=== PATIENT | male | born 1965 | race Caucasian/White ===

== ENCOUNTER 2017-02-07 16:34 | Emergency (ER) | payer OTHER ==
[2017-02-07] MEDS ORDERED: PROPARACAINE 0.5% 15 ML OPHT DROP OP ONE (16:37)
[2017-02-07 16:43] VITALS: BP 136/98; PULSE 58; RESP 18; TEMP 98.2; O2SAT 95
--- NOTE | 2017-02-07 16:51 | EDPHY ---
H & P Stated Complaint: rt eye pain Time Seen by Provider: 02/07/17 16:43 HPI/ROS: CHIEF COMPLAINT: Corneal abrasion HISTORY OF PRESENT ILLNESS: The patient is a 51-year-old man who comes to the emergency department complaining of a foreign body sensation in his right eye. He woke up this morning and felt like his eyelid was scratching his eye. He has not had any discharge. No vision changes. No erythema. He is not wear contacts. REVIEW OF SYSTEMS: Constitutional: denies: chills, fever, recent illness, recent injury EENTM: See HPI Respiratory: denies: cough, shortness of breath Cardiac: denies: chest pain, irregular heart rate, lightheadedness, palpitations Gastrointestinal/Abdominal: denies: abdominal pain, diarrhea, nausea, vomiting, blood streaked stools Genitourinary: denies: dysuria, frequency, hematuria, pain Musculoskeletal: denies: joint pain, muscle pain Skin: denies: lesions, rash, jaundice, bruising Neurological: denies: headache, numbness, paresthesia, tingling, dizziness, weakness Hematologic/Lymphatic: denies: blood clots, easy bleeding, easy bruising Immunologic/allergic: denies: HIV/AIDS, transplant EXAM: GENERAL: Well-appearing, well-nourished and in no acute distress. HEAD: Atraumatic, normocephalic. EYES: Pupils equal round and reactive to light, extraocular movements intact, sclera anicteric, conjunctiva are normal. ENT: Very minimal corneal abrasion to right eye, no foreign bodies visible. NECK: Normal range of motion, supple without lymphadenopathy or JVD. LUNGS: Breath sounds clear to auscultation bilaterally and equal. No wheezes rales or rhonchi. HEART: Regular rate and rhythm without murmurs, rubs or gallops. ABDOMEN: Soft, nontender, normoactive bowel sounds. No guarding, no rebound. No masses appreciated. BACK: No CVA tenderness, no spinal tenderness, step-offs or deformities EXTREMITIES: Normal range of motion, no pitting or edema. No clubbing or cyanosis. NEUROLOGICAL: Cranial nerves II through XII grossly intact. Normal speech, normal gait. 5/5 strength, normal movement in all extremities, normal sensation PSYCH: Normal mood, normal affect. SKIN: Warm, dry, normal turgor, no visible rashes or lesions. Source: Patient Exam Limitations: No limitations - Personal History Current Tetanus/Diphtheria Vaccine: Yes - Medical/Surgical History Hx Asthma: No Hx Chronic Respiratory Disease: No Hx Diabetes: No Hx Cardiac Disease: No Hx Renal Disease: No Hx Cirrhosis: No Hx Alcoholism: No Hx HIV/AIDS: No Hx Splenectomy or Spleen Trauma: No - Family History Significant Family History: No pertinent family hx - Social History Smoking Status: Never smoked Alcohol Use: Sober Drug Use: None Constitutional: Initial Vital Signs Temperature (C) 36.8 C 02/07/17 16:41 Heart Rate 58 L 02/07/17 16:41 Respiratory Rate 18 02/07/17 16:41 Blood Pressure 136/98 H 02/07/17 16:41 O2 Sat (%) 95 02/07/17 16:41 O2 Delivery Mode Room Air Allergies/Adverse Reactions: STEVE Inhibitors [Steve Inhibitors] Allergy (Verified 05/12/11 07:35) Home Medications: Medication Instructions Recorded Lovastatin 20 mg PO 05/12/11 Amoxicillin Trihydrate [Amoxil] 2 tab PO Q12 #40 cap 08/19/11 Aspirin [Aspirin 81mg] 81 mg PO DAILY 08/19/11 VALSARTAN/HYDROCHLOROTHIAZIDE 1 each PO 08/19/11 [Diovan Hct 320-12.5 Mg Tab] Ofloxacin 0.3% [Ocuflox 0.3%] 2 drops OP QID #1 opht.btl 02/07/17 Medical Decision Making ED Course/Re-evaluation: The patient has a very slight corneal abrasion. I will start him on Ocuflox. He feels completely better after receiving proparacaine. Vision intact. Differential Diagnosis: Partial list of the Differential diagnosis considered include but were not limited to; corneal abrasion, foreign body and although unlikely based on the history and physical exam, I also considered conjunctivitis, perforation, glaucoma. I discussed these differential diagnoses and the plan with the patient as well as the usual and expected course. The patient understands that the diagnosis is provisional and that in medicine we are not always correct and that further workup is often warranted. Usual and customary warnings were given. All of the patient's questions were answered. The patient was instructed to return to the emergency department should the symptoms at all worsen or return, otherwise to followup with the physician as we discussed. - Data Points Medications Given: Discontinued Medications Proparacaine HCl (Alcaine 0.5%) 2 drops OP EDNOW ONE Stop: 02/07/17 16:38 Last Admin: 02/07/17 16:53 Dose: 2 drops Departure - Departure Disposition: Home, Routine, Self-Care Clinical Impression: Corneal abrasion Qualifiers: Encounter type: initial encounter Laterality: right Qualified Code(s): S05.01XA - Injury of conjunctiva and corneal abrasion without foreign body, right eye, initial encounter Condition: Fair Instructions: Corneal Abrasion (ED) Referrals: MADHURI AMOR [Primary Care Provider] - As per Instructions Prescriptions: Ofloxacin 0.3% [Ocuflox 0.3%] 2 drops OP QID #1 opht.btl
== END 2017-02-07 16:59 | disposition home or self-care (01) ==
LOC: CED 16:34
DX: S05.01XA Injury of conjunctiva and corneal abrasion without foreign body, right eye, initial encounter (principal); Z79.82 Long term (current) use of aspirin; X58.XXXA Exposure to other specified factors, initial encounter